=== PATIENT | male | born 1965 | race Two or more races ===

== ENCOUNTER 2016-07-02 22:06 | Emergency (ER) | payer OTHER ==
[2016-07-02 22:17] VITALS: TEMP 97.4
[2016-07-02] MEDS ORDERED: SOLUMEDROL 125 MG/2 ML 125 MG/2 ML PDS IM ONE (22:29)
[2016-07-02] MEDS ORDERED: ALBUTEROL/IPRATROPIUM 1 VIAL SOL INH ONE (22:29)
[2016-07-02] MEDS ORDERED: ALBUTEROL/IPRATROPIUM 1 VIAL SOL ONE (22:31)
[2016-07-02] MEDS ORDERED: SOLUMEDROL 125 MG/2 ML 125 MG/2 ML PDS ONE (22:32)
[2016-07-02] MEDS ORDERED: DOXYCYCLINE 100 MG TAB PO SCH (23:00)
[2016-07-02] MEDS ORDERED: DOXYCYCLINE 100 MG TAB ONE (23:05)
[2016-07-02 23:21] VITALS: BP 125/76; PULSE 87; RESP 20; O2SAT 92
== END 2016-07-02 23:12 | disposition home or self-care (01) ==
LOC: ED 22:06
DX: J44.0 Chronic obstructive pulmonary disease with (acute) lower respiratory infection (principal); J20.9 Acute bronchitis, unspecified; J45.909 Unspecified asthma, uncomplicated; R11.2 Nausea with vomiting, unspecified
CPT/HCPCS: 71020; 99284 ×2; J2930; J7620